=== PATIENT | female | born 1985 | race African-American/Black ===

== ENCOUNTER 2017-01-05 13:22 | Emergency (ER) | payer OTHER ==
[2017-01-05 14:30] LABS: URINE SOURCE CLEAN CATCH
[2017-01-05 14:35] LABS: URINE APPEARANCE CLEAR; URINE BILIRUBIN NEG (NEG); URINE BLOOD NEG (NEG); URINE COLOR YELLOW; URINE GLUCOSE NEG (NEG); URINE KETONE NEG (NEG); URINE LEUKOCYTE ESTERASE NEG (NEG); URINE NITRATE NEG (NEG); URINE PH 6.5 (5-8); URINE PROTEIN NEG (NEG); URINE SPECIFIC GRAVITY 1.022 (1.003-1.035)
[2017-01-05 14:39] LABS: CULTURE INDICATED? NO
[2017-01-05 15:07] LABS: BASOPHIL# 0.1 X10e3 (0-0.3); BASOPHIL% 0.8 % (0-2.5); EOSINOPHIL# 0.2 X10e3 (0-0.7); EOSINOPHIL% 2.9 % (0.0-7.0); HEMATOCRIT 40.6 % (35.0-45.0); HEMOGLOBIN 13.6 gm/dL (12.0-16.0); LYMPHOCYTE# 2.4 X10e3 (1.0-3.5); LYMPHOCYTE% 33.3 % (17.0-45.0); MEAN CELL VOLUME 94.5 FL (83-96); MEAN CORPUSCULAR HEMOGLOBIN 31.7 PG (28-34); MEAN CORPUSCULAR HGB CONC 33.6 g/dL (30-36); MEAN PLATELET VOLUME 7.3 FL (6.5-11.5); MONOCYTE# 0.6 X10e3 (0-1.0); MONOCYTE% 7.8 % (3.0-12.0); NEUTROPHIL# 3.9 X10e3 (1.5-7.1); NEUTROPHIL% 55.2 % (40-75); PLATELET COUNT 306 X10e3 (140-420); RED CELL DISTRIBUTION WIDTH 12.9 % (11.0-15.5); WHITE BLOOD COUNT 7.1 X10e3 (4.0-10.5)
[2017-01-05 15:10] LABS: DIFF IND NO
[2017-01-05 15:37] LABS: ALBUMIN SERUM 3.8 g/dL (3.5-5.0); ALKALINE PHOSPHATASE 92 U/L (32-92); ALT (SGPT) 15 U/L (10-40); AST (SGOT) 21 U/L (10-42); BILIRUBIN, DIRECT <0.1 mg/dL (0.0-0.2); BILIRUBIN,INDIRECT 0.4 mg/dL (0.0-0.9); BILIRUBIN,TOTAL 0.5 mg/dL (0.2-2.0); BLOOD UREA NITROGEN 12 mg/dL (9-23); CALCIUM SERUM 8.8 mg/dL (8.4-10.2); CARBON DIOXIDE 28 mmol/L (22-31); CHLORIDE 102 mmol/L (100-111); CREATININE SERUM 0.8 mg/dL (0.6-1.4); GLUCOSE FASTING 90 mg/dL (70-110); LIPASE 27 U/L (22-51); POTASSIUM 3.8 mmol/L (3.5-5.1); PROTEIN TOTAL SERUM 7.9 g/dL (6.0-8.3); SODIUM 136 mmol/L (135-145)
[2017-04-11] MEDS ORDERED: NO MEDICATIONS (05:00)
== END 2017-01-05 16:42 | disposition home or self-care (01) ==
LOC: CED 13:22
PROVIDERS: Nurse Practitioner
DX: R11.2 Nausea with vomiting, unspecified (principal); R19.7 Diarrhea, unspecified; Z88.0 Allergy status to penicillin; Z88.2 Allergy status to sulfonamides
CPT/HCPCS: 36415; 80048; 80076; 81003; 83690; 84703; 85025; 99283

== ENCOUNTER 2017-04-12 16:00 | Inpatient (IN) | payer OTHER ==
[~2017-04-12] VITALS: Ht 152.4 cm; Wt 93.9 kg
--- NOTE | ~2017-04-12 | HP ---
Unit #: [id number] #: [id number] Patient: BATSHEVA LAKHANI [id number] [facility] [address] [place] [address] [id number] MR#: [id number] NAME: BATSHEVA LAKHANI ROOM: 32 Age: 31 Sex: F Admission Date: 04/12/2017 : 1985 Attending Physician: Yarelis Parsons M.D. Admitting Physician: Yarelis Parsons M.D. Primary Care Physician: Felice Frazier M.D. HISTORY AND PHYSICAL NOTE Batsheva is a 31 year old who was admitted to [facility] on 04/11/2017 after a drug overdose. When medically stable she was transferred to [facility] for psychiatric care. The patient was seen and short stay summary dated 04/12/2017 was reviewed. This is current. No changes. Please see short stay summary dated 04/12/2017. Dictated by... Sasha Matta P.A.-C. for Miguel Haile/allen TD: 04/13/2017 23:56 JOB #: [id number] HISTORY AND PHYSICAL Page 1 of 1 X Sasha Matta HISTORY AND PHYSICAL
--- NOTE | ~2017-04-12 | DS ---
Unit #: [id number] #: [id number] Patient: FRIDA LAKHANI [id number] [facility] [address] [place] [address] [id number] MR#: [id number] NAME: FRIDA LAKHANI ROOM: 32 Age: 31 Sex: F Admission Date: 04/12/2017 : 1985 Discharge Date: 04/15/2017 Attending Physician: Yarelis Parsons M.D. Primary Care Physician: Felice Frazier M.D. DISCHARGE SUMMARY IDENTIFYING DATA Ms. Lakhani is a 31-year-old female with history of mood disorder, who was transferred to us from [facility] Emergency Room. DISCHARGE DIAGNOSES Psychiatric: Major depressive disorder, recurrent, moderate, without psychotic features. Medical: None. Stressors: Moderate psychosocial stressors. HISTORY OF PRESENT ILLNESS Please see initial psychiatric evaluation for details. PAST PSYCHIATRIC HISTORY Please see initial psychiatric evaluation for details. PAST MEDICAL HISTORY Please see initial psychiatric evaluation for details. HOSPITAL COURSE The patient [facility] and was oriented to the hospital environment. Routine p.r.n. medications were initiated, and she was started back on her home medications. Zoloft 100 mg a day was initiated as an antidepressant. She was closely monitored. She was taking the medications regularly and was tolerating them fairly well and was able to show a decent and therapeutic response with improvement in depression and anxiety, and as such, it was decided that she will be discharged home and will continue treatment on an outpatient basis. DISCHARGE MEDICATIONS Zoloft 100 mg a day for depression. DISCHARGE CONDITION Stable. PROGNOSIS Fair. Dictated by... Yarelis Parsons M.D. Unit #: [id number] #: [id number] Patient: FRIDA LAKHANI IAA/modl TD: 04/15/2017 16:22 JOB #: [id number] DISCHARGE SUMMARY Page 1 of 1 X Yarelis Parsons MD X DISCHARGE SUMMARY
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
--- NOTE | ~2017-04-12 | PN ---
Unit #: [id number] #: [id number] Patient: FRIDA LAKHANI [id number] [facility] [address] [place] [address] [id number] MR#: [id number] NAME: FRIDA LAKHANI ROOM: 32 Age: 31 Sex: F Admission Date: 04/12/2017 : 1985 Attending Physician: Yarelis Parsons M.D. Admitting Physician: Yarelis Parsons M.D. Primary Care Physician: Miguel West PROGRESS NOTES DATE April 14, 2017 DISCUSSION Ms. Lakhani is a 31-year-old female, who was seen today and chart was reviewed and the case was discussed with the staff. The patient has been anxious, withdrawn, and rather seclusive to herself. Meanwhile, she has been taking the medications and tolerating them fairly well with no reported side effects. MENTAL STATUS EXAMINATION Young female, who was casually dressed with fair personal hygiene and appears to be in no acute distress or discomfort. She was awake and alert on interaction with intact orientation. Her mood was anxious with a congruent affect. She denies any suicidal or homicidal ideations. Her insight and judgment remain slightly impaired. TREATMENT PLAN 1. We will continue her on her current medications and treatment protocol, and will monitor her response to the medications, and make further adjustments as needed. 2. We will continue to followup. Dictated by... Miguel Dyer/obed TD: 04/15/2017 09:55 JOB #: [id number] Unit #: [id number] #: [id number] Patient: FRIDA LAKHANI PROGRESS NOTES Page 1 of 1 X Yarelis Parsons MD X PROGRESS NOTE
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
[~2017-04-12 16:00] MED LIST: NO MEDICATIONS
[2017-04-13 12:39] LABS: BASOPHIL# 0.1 X10e3 (0-0.3); BASOPHIL% 0.7 % (0-2.5); EOSINOPHIL# 0.1 X10e3 (0-0.7); EOSINOPHIL% 1.3 % (0.0-7.0); HEMATOCRIT 40.8 % (35.0-45.0); HEMOGLOBIN 13.8 gm/dL (12.0-16.0); LYMPHOCYTE# 2.2 X10e3 (1.0-3.5); MEAN CORPUSCULAR HEMOGLOBIN 31.9 PG (28-34); MEAN CORPUSCULAR HGB CONC 33.9 g/dL (30-36); MONOCYTE# 0.7 X10e3 (0-1.0); MONOCYTE% 8.8 % (3.0-12.0); NEUTROPHIL# 5.1 X10e3 (1.5-7.1); NEUTROPHIL% 62.2 % (40-75); PLATELET COUNT 318 X10e3 (140-420); RED BLOOD COUNT 4.34 X10e (3.90-5.30); RED CELL DISTRIBUTION WIDTH 13.2 % (11.0-15.5); WHITE BLOOD COUNT 8.2 X10e3 (4.0-10.5)
[2017-04-13 12:40] LABS: DIFF IND NO
[2017-04-13 12:48] LABS: ALBUMIN SERUM 3.8 g/dL (3.5-5.0); BILIRUBIN,TOTAL 0.4 mg/dL (0.2-2.0); CALCIUM SERUM 9.3 mg/dL (8.4-10.2); CREATININE SERUM 0.8 mg/dL (0.6-1.4); POTASSIUM 4.4 mmol/L (3.5-5.1); PROTEIN TOTAL SERUM 7.5 g/dL (6.0-8.3)
== END 2017-04-15 09:45 | DRG 885 ==
LOC: P1S 19:01
PROVIDERS: Psychiatry & Neurology Psychiatry
DX: F33.1 Major depressive disorder, recurrent, moderate (principal); R45.851 Suicidal ideations; Z88.2 Allergy status to sulfonamides; Z88.1 Allergy status to other antibiotic agents; T50.902A Poisoning by unspecified drugs, medicaments and biological substances, intentional self-harm, initial encounter; Y92.9 Unspecified place or not applicable
CPT/HCPCS: 80053; 85025